=== PATIENT | male | born 1985 | race African-American/Black ===

== ENCOUNTER → 2024-09-04 10:30 | Outpatient (REF) | payer MEDICARE, OTHER, SELFPAY | LOC: MRI 3T 10:30 | PROVIDERS: ATTENDING PHYSICIAN Physician Assistant | DX: R20.2 Paresthesia of skin (principal); M79.605 Pain in left leg; L29.9 Pruritus, unspecified; R29.898 Other symptoms and signs involving the musculoskeletal system | CPT/HCPCS: 72148 ==

== ENCOUNTER 2024-09-27 10:33 | Emergency (ER) | payer MEDICARE, OTHER, SELFPAY ==
[2024-09-27 10:59] VITALS: BP 120/83
--- NOTE | 2024-09-27 11:22 | ED.GENMED ---
History of Present Illness
General
Chief Complaint: Back Pain
Source: patient
Time Seen by Provider: 09/27/24 11:14
History of Present Illness
History of Present Illness:
39yoM with a history of schizoaffective disorder presenting for evaluation of back pain. He reports low back pain that has been ongoing for at least a month. He denies any trauma to the back. Pain seems to be worse with prolonged sitting. He
also reports a burning pain in the left lateral thigh which has been ongoing for several weeks. Patient does not like taking medications and has not tried anything [id number]. He was seen by his PCP for the symptoms last month and was noted
to have left leg weakness. He was sent for an MRI of the lumbar spine. MRI from 09/04/2024 revealed 'No significant spinal canal or neuroforaminal narrowing. Mild bilateral facet arthropathy of L4-L5 and L5-S1.' He denies any fevers, abdominal
pain, saddle anesthesia, incontinence. No prior history of IV drug use, cancer, or back surgeries.
Past History
Past History
ED Past Medical History: Asthma and Psychiatric (History of psychiatric admissions for bipolar disease. He states he is taking his medications which include Seroquel and Neurontin. He admits to having suicidal thoughts in the past but none now.)
ED Past Surgical History: Cholecystectomy and Tonsilectomy
Social History
Tobacco: Non-smoker
Alcohol: None
Drug: None
Personal: Single (Lives in a boarding house in [place]. States she does not like it there.)
Living: other (States he lives with his landlord.)
Employment: Disabled (Patient collects disability.)
Family History
Family History: Other
Phy Exam
General Physical Exam
General Presentation: well appearing and no apparent distress
General age: appears stated age
General Skin: warm and dry
General Habitus: normal
General Mental: alert
ENT Exam
ENT Exam: normocephalic
Cardiovascular Exam
Cardiovascular Exam: normal peripheral pulses (2+ DP pulses bilaterally)
Pulmonary Exam
Pulmonary Exam: no respiratory distress
Gastrointestinal Exam
Gastrointestinal Exam: non tender, soft and non distended
Neurological Exam
Neurological Exam: alert and other (4+/5 strength with L hip flexion )
[place] Coma Scale
Eye Opening: Spontaneous
Verbal Response: Oriented
Motor Response: Obeys Commands
GCS Total Score: 15
Musculoskeletal Exam
Musculoskeletal Exam: other (Mild tenderness to paraspinal musculature in lumbar region. No midline spinous process tenderness. No skin changes. Negative straight leg raise. )
Skin Exam
Skin Exam: normal color and warm/dry
Psychiatric Exam
Psychiatric Exam: normal mood/affect
Course
Orders/Labs/Results
Orders:
Orders
09/27/24 11:34
Lidocaine [Lidocaine 4% Patch] 1 patch TOPICAL ONCE ONE
Apply Lidocaine patch(s) to:: low back
Vital Signs
Initial and Last Documented VS:
Initial Vital Signs
Temp Pulse Resp BP Pulse Ox
99.0 F 104 16 120/83 98
09/27/24 10:59 09/27/24 10:59 09/27/24 10:59 09/27/24 10:59 09/27/24 10:59
Last Documented Vital Signs
Temp Pulse Resp BP Pulse Ox
98.5 F 100 18 120/83 100
09/27/24 11:45 09/27/24 11:45 09/27/24 11:45 09/27/24 10:59 09/27/24 11:45
MDM/Problems Addressed
Differential Diagnosis Includes:
39yoM here with atraumatic low back pain ongoing at least 1 month. Also c/o L thigh burning x several weeks. Has been seen by PCP and had an outpatient MRI last month which was normal other than mild bilateral facet arthropathy at L4-L5 and L5-S1.
No red flags in history including no fevers, saddle anesthesia, incontinence, hx of IVDU. VSS. He is well appearing in no distress. There is mild paraspinal tenderness in lumbar region on exam. Differential diagnosis includes but is not limited to:
muscular strain, sciatica, less likely herniated disc as this was not seen on MRI last month
No indication for imaging at this time. He has not been taking anything OTC because he does not like to take medications. He declines prescriptions at this time but is agreeable to trial lidocaine patch. Patch given in ED. Advised heat and PRN
Tylenol/ibuprofen. Advised f/u with PCP and orthopedics. Strict ED return precautions discussed. He is in agreement with plan and was discharged in stable condition.
*Critical Care Note
Total Time (30-74mins, 75-104mins- exclusive of procedures): Not Applicable
ED Attending Note
-
Portions of this chart may have been created with voice recognition software.� Occasional wrong word or��sound alike� substitutions may have occurred due to the inherent limitations of voice recognition software.
Discharge Plan
Departure
Patient Disposition: Home (Routine Discharge)
Date of Disposition: 09/27/24
Time of Disposition: 11:31
Patient with high blood pressure during this ER visit?: No
Discharge Problem:
Low back pain
Instructions: Low Back Pain (DC)
Prescriptions:
No Action
Neurontin 1 CAP
300 mg PO BID
quetiapine 300 MG tablet
200 mg PO HS
albuterol sulfate [Ventolin HFA] 90 MCG/PUFF HFA aerosol inhaler
2 puff inhalation PRN PRN (Reason: difficulty breathing)
Referrals:
Riccardo Christianson MD [Active] -
Activity Restrictions/Additional Instructions:
Apply heat to affected area. Use lidocaine patches daily (12 hours on, 12 hours off). Take Tylenol 650mg and ibuprofen 600mg every 6 hours as needed for pain.
Please follow-up with your family doctor and orthopedics. Return to the ER with any worsening symptoms, new numbness/weakness, or incontinence.
Interventions
Interventions:
*Risk Screen - Suicide Last Done: 09/27/24 10:59
*General Assessment Last Done: 09/27/24 11:45
*Neglect/Abuse Screening Last Done: 09/27/24 10:59
*ED COVID-19 Vaccine History Last Done: 09/27/24 11:45
*Nursing Disposition Last Done: 09/27/24 11:47
ED-Musculoskeletal Assessment Last Done: 09/27/24 11:45
Discharge Date and Time
Discharge Date/Time: 09/27/24 11:47
Print Language: JAPANESE
[2024-09-27] MEDS: LIDOCAINE 4% PATCH 1 PATCH TOPICAL (11:39)
== END 2024-09-27 11:47 | disposition home or self-care (01) ==
LOC: EMR 10:33
PROVIDERS: EMERGENCY PHYSICIAN Emergency Medicine; FAMILY PHYSICIAN Physician Assistant
DX: M54.50 Low back pain, unspecified (principal); F25.9 Schizoaffective disorder, unspecified
CPT/HCPCS: 99282

== ENCOUNTER 2025-04-11 12:25 | Emergency (ER) | payer MEDICARE, OTHER, SELFPAY ==
[2025-04-11 12:26] VITALS: BP 132/94
[2025-04-11 14:52] VITALS: BP 114/84
--- NOTE | 2025-04-11 14:53 | ED.GENMED ---
History of Present Illness
General
Chief Complaint: Dizziness
Source: patient
Exam Limitations: none
Time Seen by Provider: 04/11/25 14:00
Nursing documentation reviewed up to this point in time: agreed with
History of Present Illness
History of Present Illness:
see MDM
Past History
Past History
ED Past Medical History: Asthma and Psychiatric (History of psychiatric admissions for bipolar disease. He states he is taking his medications which include Seroquel and Neurontin. He admits to having suicidal thoughts in the past but none now.)
ED Past Surgical History: Cholecystectomy and Tonsilectomy
Social History
Tobacco: Non-smoker
Alcohol: None
Drug: None
Personal: Single (Lives in a boarding house in [place]. States she does not like it there.)
Living: other (States he lives with his landlord.)
Employment: Disabled (Patient collects disability.)
Family History
Family History: Other
Review of Systems
Review of Systems
Allergies reviewed?: Yes
All Other Systems: Not applicable
Phy Exam
Physical Exam
Physical Exam:
GENERAL: Alert , in no apparent distress
HEAD: NCAT
EYE: pupils equal and reactive, no nystagmus, no photophobia
NECK: Supple,full rom, nontender
ENT: o/p clr, mmm.
CARDIAC: Regular rate and rhythm . no edema
LUNGS: Clear breath sounds bilaterally, no acute respiratory distress, no wheezes/rales/rhonchi
ABDOMEN: Soft, distended, nontender, no r/g, no cvat
NEUROLOGICAL: Alert and orientedx 4, cn intact, no facial asymmetry, 5/5 strength in UE/LE, sensation intact, romberg neg, ambulates without assistance, neg pronator drift
SKIN: Warm and dry,
MUSCULOSKELETAL: No edema, well perfused.
PSYCH: Normal and appropriate interaction.
Course
Orders/Labs/Results
Orders:
Orders
04/11/25 12:30
Electrocardiogram (*1) Urgent
Reason for Study: Vertigo / Dizzy
04/11/25 12:31
EKG- Treatment ONCE
04/11/25 14:47
0.9% Sodium Chloride 1000 ml [Nss] 1,000 ml IV BOLUS
Meclizine [Antivert] 25 mg PO NOW STA
Ondansetron Injectable [Zofran] 4 mg IV NOW STA
04/11/25 14:51
CT Head W/o Iv Contrast Urgent
Comment:
Reason For Exam: nausea, dizziness, headache
Comprehensive Metabolic Panel Urgent
Lipase Urgent
04/11/25 15:49
US Abdomen Complete/Upper Urgent
Comment:
Reason For Exam: abd distension, nauesa
04/11/25 17:18
Complete Blood Count/With Diff Urgent
Abnormal Lab Results
04/11/25 04/11/25
14:51 17:18
MCHC 32.5 L g/dL
(33.0-37.0)
MPV 10.7 H fL
(7.4-10.4)
Abs Immat Gran (auto) 0.1 H 10^3/uL
(0-0.05)
Absolute Monos (auto) 0.7 H 10^3/uL
(0.1-0.6)
Immature Gran % 1.0 H %
(0-0.5)
Basophils % 2.5 H %
(0-2)
Chloride 108 H mmol/L
(98-107)
ALT 108 H U/L
(0-50)
04/11/25 17:18
04/11/25 14:51
Vital Signs
Initial and Last Documented VS:
Initial Vital Signs
Temp Pulse Resp BP Pulse Ox
36.6 C 103 18 132/94 95
04/11/25 12:26 04/11/25 12:26 04/11/25 12:26 04/11/25 12:26 04/11/25 12:26
Last Documented Vital Signs
Temp Pulse Resp BP Pulse Ox
36.6 C 90 18 108/78 95
04/11/25 12:26 04/11/25 15:45 04/11/25 12:26 04/11/25 15:00 04/11/25 12:26
MDM/Problems Addressed
Differential Diagnosis Includes:
see MDM
MDM/Problems Addressed:
Note:
CHIEF COMPLAINT(S)
- Weakness in legs
- Dizziness
- Fatigue
- Nausea
HISTORY OF PRESENT ILLNESS
40 y/o M schizoaffective, stable on meds
initially presented saying his legs are weak
but then reported that has been a symptoms ongoing for yeras and he has had neuro imaging and work ups without diangosis
the new sypmtom is nauesa/dry heaves and fatigue;
developed these x 3 dyas
he also feels dizzy when he turns his head
he denies feeling like he may pass out.
he feels chronic fatigue and really says this is not new
it seems to be worse in the morning before he eats.
pt told his therpaist about this who drove him here
pt has not had fever, headache, cp, sob, diarrhea, urinary sypmtoms, h/o vertigo
no visoin chnages
the leg weakness he says he feels is chronic, not new or worse today;
Despite seeing multiple specialists for these issues, the etiology remains unresolved.
The patient has a history of schizoaffective disorder with lessened symptoms over the past few months,
CHRONIC MEDICAL CONDITIONS SIGNIFICANTLY AFFECTING CARE
- Asthma
- Gastroesophageal Reflux Disease (GERD)
- Schizoaffective Disorder
PAST SURGICAL HISTORY
- Removal of gallbladder
MEDICATIONS
- Antipsychotic medication for schizoaffective disorder
- Other medications for asthma and GERD, unspecified
SOCIAL HISTORY
- Denies smoking and alcohol use
- Lives alone
REVIEW OF SYSTEMS
- Neurological: Dizziness, fatigue, visual disturbances
- Musculoskeletal: Weakness in legs and arms, pins and needles sensation in left leg
- Gastrointestinal: Nausea, occasional sensation of fluid in the abdomen
- Mental Health: History of schizoaffective disorder, experiencing visual hallucinations
PHYSICAL EXAM
- Neurological: No acute cranial nerve deficit observed, patient instructed to perform various facial movements and eye following
- Abdominal: Fluid-like sensation noted, no pain reported
- Nursing notes reviewed and vital signs reviewed
PROBLEM LIST
- Acute: Dizziness, Nausea, Visual disturbances, Left leg weakness
- Chronic: Asthma, Gastroesophageal Reflux Disease, Schizoaffective Disorder
PLAN
- Administration of medication for nausea
- Administration of medication for vertigo
- Provision of intravenous fluids
- Laboratory tests: Complete Blood Count (CBC), Comprehensive Metabolic Panel (CMP)
- Abdominal ultrasound to assess the fluid-like sensation
DIFFERENTIAL DIAGNOSIS
The Differential Diagnosis includes, in no particular order and is not limited to:
- Vestibular disorder
- Medication side effects
- Dehydration
- Inner ear infection
- Electrolyte imbalance
- Neuropathy
- Myopathy
- Chronic Fatigue Syndrome
- Schizoaffective disorder relapse
- Gastrointestinal disturbance
0 =-
Patient was a difficult stick, required multiple attempts and did not have successful infusion of IV fluids due to infiltration of the primary site. Patient will be given oral fluids. He feels less dizzy than prior after the meclizine. He is no
longer nauseated and is going to try some lauri cathy. His CT scan of his head was negative, the CBC had hemolyzed am waiting for that repeat and likely will discharge with meclizine
cbc reviewed, no concerns
d/c hoem
tolerated oral fluids
*Pulse Oximetry
Patient hypoxic: no
Comment: 95
*Critical Care Note
Total Time (30-74mins, 75-104mins- exclusive of procedures): Not Applicable
ED Attending Note
-
Portions of this chart may have been created with voice recognition software.� Occasional wrong word or��sound alike� substitutions may have occurred due to the inherent limitations of voice recognition software.
Discharge Plan
Departure
Patient Disposition: Home (Routine Discharge)
Date of Disposition: 04/11/25
Time of Disposition: 17:41
Patient with high blood pressure during this ER visit?: No
Condition: Fair
Covid-19: Not Applicable
Discharge Problem:
Dizziness, Nausea, Vertigo
Instructions: Vertigo (a Type of Dizziness) (DC)
Prescriptions:
New
meclizine 25 mg tablet
25 mg PO BID PRN (Reason: dizziness) Qty: 10 0RF
No Action
Neurontin 1 CAP
300 mg PO BID
quetiapine 300 MG tablet
200 mg PO HS
albuterol sulfate [Ventolin HFA] 90 MCG/PUFF HFA aerosol inhaler
2 puff inhalation PRN PRN (Reason: difficulty breathing)
Referrals:
Linda Graham PA-C [Family Provider, Internal Medicine] - Follow up in 2-3 days
Activity Restrictions/Additional Instructions:
YOU MAY HAVE MILD VERTIGO CAUSING YOUR DIZZINESS AND NAUESA
YOUR BLOOD WORK, CAT SCAN AND ULTRASOUND WERE REASSURING
TRY MECLIZINE 2 TIMES A DAY FOR 3 DAYS NEEDED FOR DIZZINESS
RETURN FOR: WORSENING SYMPTOMS, PASSINGOUT, SEVERE HEADACHE, WORSE VOMITING/ABDMINAL PAIN OR ANY CONCERNS.
SEE YOUR DOCTOR REGARDING YOUR OTHER SYMPTOMS OF CHRONIC FATIGUE AND WEAKNESS.
Interventions
Interventions:
*Risk Screen - Suicide Last Done: 04/11/25 12:26
*General Assessment Last Done: 04/11/25 12:26
*Neglect/Abuse Screening Last Done: 04/11/25 12:26
*ED- Fall Risk Assessment Last Done: 04/11/25 13:42
*ED COVID-19 Vaccine History Last Done: 04/11/25 13:42
*Nursing Disposition Last Done: 04/11/25 18:01
ED- Neurological Assessment Last Done: 04/11/25 14:38
ED- Cardiac Assessment Last Done: 04/11/25 14:38
ED Swallowing Screen Last Done: 04/11/25 14:40
Discharge Date and Time
Discharge Date/Time: 04/11/25 18:02
Print Language: [id number]
[2025-04-11 15:00] VITALS: BP 108/78
[2025-04-11] MEDS: ANTIVERT 25 MG PO (15:03)
[2025-04-11] MEDS: NSS 1000 IV (15:03)
[2025-04-11] MEDS: ZOFRAN 4 MG IV (15:03)
[2025-04-11 15:26] LABS: ALT (SGPT) 108 U/L (0-50); AST (SGOT) 44 U/L (17-59); Albumin 4.6 g/dl (3.5-5.0); Alkaline Phosphatase 88 U/L (38-126); Blood Urea Nitrogen 13 mg/dl (9-20); Calcium 9.9 mg/dl (8.4-10.2); Carbon Dioxide 29 mmol/L (22-30); Chloride 108 mmol/L (98-107); Glucose 98 mg/dl (70-99); Lipase 267 U/L (23-300); Potassium 4.6 mmol/L (3.5-5.1); Total Bilirubin 0.5 mg/dl (0.2-1.3); Total Protein 7.5 g/dl (6.3-8.2); eGFR > 60.00
[2025-04-11 16:36] LABS: Sodium 141 mmol/L (135-145)
[2025-04-11 17:29] LABS: % Basophils 2.5 % (0-2); % Eosinophils 4.2 % (0-6); % Lymphocytes 38.5 % (20.5-51.1); % Monocytes 9.3 % (1.7-9.3); % Neutrophils 44.5 % (42.2-75.2); Absolute Basophils 0.2 10^3/uL (0-0.2); Absolute Eosinophils 0.3 10^3/uL (0-0.7); Absolute Immature Granulocytes 0.1 10^3/uL (0-0.05); Absolute Lymphocytes 2.8 10^3/uL (1.2-3.4); Absolute Monocytes 0.7 10^3/uL (0.1-0.6); Absolute Neutrophils 3.2 10^3/uL (1.4-6.5); Hematocrit 44.6 % (39.0-52.0); Hemoglobin 14.5 g/dL (13.0-18.0); Mean Corp Hgb Conc. 32.5 g/dL (33.0-37.0); Mean Corpuscular Hgb 28.9 pg (27.0-31.0); Mean Platelet Volume 10.7 fL (7.4-10.4); Nucleated Red Blood Cells % 0 % (-); Platelet Count 201 10^3/uL (130-400); Red Blood Cell Count 5.01 10^6/uL (4.70-6.10); Red Cell Dist. Width 14.4 % (11.5-14.5); White Blood Cell Count 7.2 10^3/uL (4.8-10.8)
== END 2025-04-11 18:02 | disposition home or self-care (01) ==
LOC: EMR 12:25
PROVIDERS: Emergency Medicine; Physician Assistant; EMERGENCY PHYSICIAN Emergency Medicine; FAMILY PHYSICIAN Physician Assistant
DX: R42 Dizziness and giddiness (principal); R11.0 Nausea; F25.9 Schizoaffective disorder, unspecified; J45.909 Unspecified asthma, uncomplicated; K21.9 Gastro-esophageal reflux disease without esophagitis
CPT/HCPCS: 99285; 96374; 96361; 70450; 76700; 80053; 83690; 85025; 93005

== ENCOUNTER → 2025-07-07 14:15 | Outpatient (REF) | payer MEDICARE, OTHER, SELFPAY | LOC: RCS 14:15 | PROVIDERS: ATTENDING PHYSICIAN Registered Nurse; FAMILY PHYSICIAN Physician Assistant | DX: R94.31 Abnormal electrocardiogram [ECG] [EKG] (principal) | CPT/HCPCS: 93005 ==